=== PATIENT | male | born 1960 | race Two or more races ===

== ENCOUNTER → 2021-01-05 | Outpatient (CLI) | payer OTHER | END | disposition home or self-care (01) | LOC: PPH VACUNA | DX: Z23 Encounter for immunization (principal) ==

== ENCOUNTER → 2021-01-26 08:00 | Outpatient (CLI) | payer OTHER | END | disposition home or self-care (01) | LOC: PPH VACUNA 08:00 | DX: Z23 Encounter for immunization (principal) ==

== ENCOUNTER 2024-01-25 14:25 | Outpatient (CLI) | payer OTHER | END 2024-01-25 14:36 | disposition home or self-care (01) | LOC: RAD 14:25 | PROVIDERS: ATTEND Physical Medicine & Rehabilitation | DX: M25.561 Pain in right knee (principal); M25.562 Pain in left knee ==

== ENCOUNTER 2024-07-08 13:09 | Outpatient (CLI) | payer OTHER | END 2024-07-08 13:16 | disposition home or self-care (01) | LOC: RAD 13:09 | PROVIDERS: ATTEND Ophthalmology | DX: R07.89 Other chest pain (principal) ==